=== PATIENT | female | born 1990 | race Caucasian/White ===

== ENCOUNTER 2017-04-02 04:04 | Emergency (ER) | payer OTHER ==
[2017-04-02] MEDS ORDERED: NS 0.9% 1000 ML* 1,000 ML IV ONE (04:22)
[2017-04-02] MEDS ORDERED: diPHENhydraMINE IV* 50 MG/ML 1 ml VIAL (BENADRYL) IV ONE (04:22)
[2017-04-02] MEDS ORDERED: Famotidine IV* 10 MG/ML 2 ML (20 mg) IV SLOW PU ONE (04:23)
[2017-04-02] MEDS ORDERED: methylPREDNISolone 125 MG* 2 ML VIAL IV ONE (04:23)
[2017-04-02] MEDS ORDERED: Albuterol/Ipratropium NEB.SOL* Albuterol 2.5 MG/Ipratropium 0.5 MG 3 ML INH ONE (04:34)
[2017-04-02 05:46] VITALS: BP 111/69
--- NOTE | 2017-04-02 06:09 | ED ---
Imani Spicer Alok, scribed for Gian Lowe MD on 04/02/17 at 0430 . Shortness of Breath - HPI Summary HPI Summary: 27F presents to the ED with SOB since 2 nights ago and a rash on her arms and legs since 2100 this evening. Pt states she has been using her albuterol inhaler with mild relief though much less than the relief she usually gets. Pt has been using her inhaler ever 3-4 hours the past two days as opposed to once a day as she does regularly. Pt denies eating/drinking before onset of rash and states it is pruritus. Pt also notes chest tightness, wheezing, and non- productive cough. Pt notes dizziness and lightheadedness today and states that her SOB has improved somewhat today versus yesterday. PMHx includes h/o asthma and celiac's disease. Pt states that her asthma is usually aggravated by seasonal allergies. Pt also takes Zyrtec on top of her inhaler. - History of Current Complaint Chief Complaint: EDAllergicReaction Time Seen by Provider: 04/02/17 04:16 Hx Obtained From: Patient Onset/Duration: Lasting Days, Still Present Timing: Constant Current Severity: Moderate Dyspnea At: Rest Associated Signs & Symptoms: Cough (Nonproductive), Wheezing, Chest Pain Unrelated to Cough, Dizzy - Allergy/Home Medications Allergies/Adverse Reactions: Allergies Allergy/AdvReac Type Severity Reaction Status Date / Time No Known Allergies Allergy Verified 04/02/17 04:11 PMH/Surg Hx/FS Hx/Imm Hx Respiratory History: Reports: Hx Asthma Infectious Disease History: No Infectious Disease History: Denies: Traveled Outside the [place] in Last 30 Days - Family History Known Family History: Negative: Hypertension - Social History Occupation: Student Lives: With Family Review of Systems Negative: Fever Positive: Chest Pain - "tightness" Positive: Shortness Of Breath, Cough Positive: Rash Neurological: Other - Dizziness, lightheadedness All Other Systems Reviewed And Are Negative: Yes Physical Exam - Summary Physical Exam Summary: The patient is well-nourished in no acute distress and in no acute pain. The skin is warm and dry and skin color reflects adequate perfusion. Generalized hives throughout arms and trunk with no cyanosis. HEENT: The head is normocephalic and atraumatic. The pupils are equal and reactive. The conjunctivae are clear and without drainage. Nares are patent and without drainage. Mouth reveals moist mucous membranes and the throat is without erythema and exudate. The external ears are intact. The ear canals are patent and without drainage. The tympanic membranes are intact. Neck is supple with full range of motion and non-tender. There are no carotid bruits. There is no neck vein distension. Respiratory: Chest is non-tender. Diffuse wheezing throughout both lung berry. Cardiovascular: Heart is regular rate and rhythm with no tachycardia. There is no murmur or rub auscultated. There is no peripheral edema and pulses are symmetrical and equal. Abdomen: The abdomen is soft and non-tender. There are normal bowel sounds heard in all four quadrants and there is no organomegaly palpated. Musculoskeletal: There is no back pain noted. Extremities are non-tender with full range of motion. There is good capillary refill. There is no peripheral edema or calf tenderness elicited. Neurological: Patient is alert and oriented to person, place and time. The patient has symmetrical motor strength in all four extremities. Cranial nerves are grossly intact. Deep tendon reflexes are symmetrical and equal in all four extremities. Psychiatric: The patient has an appropriate affect and does not exhibit any anxiety or depression. Triage Information Reviewed: Yes Vital Signs On Initial Exam: Initial Vitals Temp Pulse Resp BP Pulse Ox 98.2 F 95 20 144/95 100 04/02/17 04:09 04/02/17 04:09 04/02/17 04:09 04/02/17 04:09 04/02/17 04:09 Vital Signs Reviewed: Yes Diagnostics - Vital Signs Vital Signs Temp Pulse Resp BP Pulse Ox 04/02/17 04:09 98.2 F 95 20 144/95 100 - Laboratory Lab Statement: Any lab studies that have been ordered have been reviewed, and results considered in the medical decision making process. Re-Evaluation - Re-Evaluation First Eval Re-Evaluation Time: 05:20 Change: Improved Comment: Pt SOB improved from breathing treatment. Course/Dx - Course Course Of Treatment: 27 y/o female presents with SOB and generalized hives on her arms and trunk. Pt was given a breathing treatment and condition improved. Will discharge home with rx for pepcid and prednisone. - Diagnoses Differential Diagnosis/HQI/PQRI: Positive: Asthma, Other - allergic reaction Provider Diagnoses: Asthma exacerbation, Allergic reaction Discharge - Discharge Plan Condition: Stable Disposition: HOME Prescriptions: Famotidine TAB 40 MG(NF) [Pepcid TAB 40 MG(NF)] 40 mg PO DAILY #30 tab predniSONE TAB* [Deltasone TAB*] 60 mg PO DAILY #15 tab Patient Education Materials: Asthma (ED), General Allergic Reaction (ED) Referrals: Miko Reid MD [Primary Care Provider] - Additional Instructions: Please follow up with your primary care provider. The documentation as recorded by the Imani molina Alok accurately reflects the service I personally performed and the decisions made by , Gian Lowe MD.
== END 2017-04-02 06:00 | disposition home or self-care (01) ==
LOC: ED 04:04
DX: J45.901 Unspecified asthma with (acute) exacerbation (principal); T78.40XA Allergy, unspecified, initial encounter; X58.XXXA Exposure to other specified factors, initial encounter
CPT/HCPCS: 94640; 94760; 96360; 96374; 96375; 99282; A9270-GY; J1200; J2930

== ENCOUNTER 2019-01-16 13:47 | Emergency (ER) | payer OTHER ==
--- NOTE | 2019-01-16 14:51 | ED ---
GI/ HPI - HPI Summary HPI Summary: The patient is a 28 year old F presenting to [facility] accompanied by mother with a chief complaint of bilateral flank pain and pressure since last week. The patient originally thought the pain was caused by gluten poisoning due to Celiac disease. However the Sx worsened two days ago, 01/14/19, after the gluten poisoning had ended. The patient rates the pain 6/10 in severity. Symptoms aggravated by nothing. Symptoms alleviated by nothing. Patient reports nausea, dizziness, chills, blood in the stool, abdominal pain, and muscle stiffness. The patient also reports a LNMP 2 weeks ago. Patient denies fever, vomiting, diarrhea, or hematuria. Patient also denies any vaginal symptoms. Patient has no Hx of UTIs, Chron's disease, Ulcerative Colitis, colonoscopy, or endoscopy. - History of Current Complaint Chief Complaint: EDFlankPain Time Seen by Provider: 01/16/19 14:28 Stated Complaint: BI LATERAL KIDNEY PRESSURE PER PT Hx Obtained From: Patient, Family/Announcer - mother Onset/Duration: Started Weeks Ago - 1, Still Present, Worse Since - 2 days ago Timing: Constant, Lasting Weeks - 1 Severity: Moderate Current Severity: Moderate Pain Intensity: 6 Location of Pain: Flank - bilateral Pain Characteristics: Pressure Associated Signs and Symptoms: Positive: Dizziness, Nausea, Blood w/Stool, Flank Pain, Abdominal Pain, Other: - Positive: chills, LNMP 2 weeks ago. Negative: Vomiting, Diarrhea, Fever, Hematuria Aggravating Factor(s): Nothing Alleviating Factor(s): Nothing - Allergy/Home Medications Allergies/Adverse Reactions: Allergies Allergy/AdvReac Type Severity Reaction Status Date / Time gluten Allergy Stomach Verified 01/16/19 13:53 Cramps Home Medications: Home Medications Albuterol HFA INHALER* [Ventolin HFA Inhaler*] 2 puff INH Q4H PRN 01/16/19 [ History Confirmed 01/16/19] Loratadine 10 mg PO DAILY 01/16/19 [History Confirmed 01/16/19] PMH/Surg Hx/FS Hx/Imm Hx Respiratory History: Reports: Hx Asthma Denies: Hx Chronic Obstructive Pulmonary Disease (COPD) GI History: Denies: Hx Crohn's Disease, Other GI Disorders - Ulceritive Colitis - Surgical History Surgery Procedure, Year, and Place: NONE Infectious Disease History: No Infectious Disease History: Denies: Traveled Outside the [place] in Last 30 Days - Family History Known Family History: Positive: Other - Negitive: Chron's Disease, Ulceritive Colitis Negative: Hypertension - Social History Alcohol Use: Occasionally Hx Substance Use: No Substance Use Type: Reports: None Hx Tobacco Use: No Smoking Status (MU): Never Smoked Tobacco Review of Systems Positive: Chills. Negative: Fever Positive: Abdominal Pain, Nausea. Negative: Vomiting, Diarrhea Positive: flank pain, other - LNMP 2 weeks ago. Negative: hematuria Positive: Other - Muscle stiffness Neurological: Other - Dizziness All Other Systems Reviewed And Are Negative: Yes Physical Exam - Summary Physical Exam Summary: Appearance: well appearing, no pain distress Skin: warm, dry, reflects adequate perfusion Head/face: normal Eyes: EOMI, ANGEL ENT: mucous membranes moist Neck: supple, non-tender Respiratory: CTA, breath sounds present Cardiovascular: RRR, pulses symmetrical Abdomen: non-tender, soft, no CVA tenderness Bowel Sounds: present Musculoskeletal: normal, strength/ROM intact Neuro: normal, sensory motor intact, A&Ox3 Triage Information Reviewed: Yes Vital Signs On Initial Exam: Initial Vitals Temp Pulse Resp BP Pulse Ox 98.6 F 81 16 135/79 97 01/16/19 13:48 01/16/19 13:48 01/16/19 13:48 01/16/19 13:48 01/16/19 13:48 Vital Signs Reviewed: Yes Diagnostics - Vital Signs Vital Signs Temp Pulse Resp BP Pulse Ox 01/16/19 13:48 98.6 F 81 16 135/79 97 - Laboratory Result Diagrams: 01/16/19 14:37 01/16/19 14:37 Lab Statement: Any lab studies that have been ordered have been reviewed, and results considered in the medical decision making process. GIGU Course/Dx - Course Course Of Treatment: Nurse's notes reviewed. Patient with recurring abdominal issues which she attributes to celiac disease over many years. She states that sometimes she gets symptoms up to 6 months in duration after eating a small amount of gluten. She did pass a small amount of blood in her stool earlier in the week. She has no abdominal pain now and no back discomfort. Laboratories show slight elevation in WBC and no urinary tract infection. I offered CT scan of the abdomen we have agreed to defer this given her lack of discomfort. It is possible that she has some colitis and will treat with antibiotics. I suggested that she needs outpatient GI evaluation to include colonoscopy to rule out IBD. - Diagnoses Differential Diagnoses - Female: Other - Ulcerative colitis/Crohn's disease, celiac disease, lumbar strain, pyelonephritis, UTI, constipation Provider Diagnoses: Leukocytosis, Celiac disease, Low back pain, Inflammatory bowel disease Discharge - Sign-Out/Discharge Documenting (check all that apply): Patient Departure - discharge Patient Received Moderate/Deep Sedation with Procedure: No - Discharge Plan Condition: Stable Disposition: HOME Prescriptions: Amoxicillin/Clavulanate TAB* [Augmentin TAB 875*] 875 mg PO BID #14 tab Hyoscyamine Sulfate 0.125 mg PO TID PRN #30 tab PRN Reason: cramping Patient Education Materials: Celiac Disease (ED), Crohn Disease (ED) Referrals: Miko Reid MD [Primary Care Provider] - Haylie Dumont MD [Medical Doctor] - Additional Instructions: Avoid ibuprofen and likely medications for discomfort. Use Tylenol as needed. He will need to have a colonoscopy and evaluation by GI doctor on return home. Call them in the morning to schedule follow-up. Follow up with her primary care physician as soon as possible. Return with fever, increased abdominal pain , worse, new symptoms or other concerns. - Billing Disposition and Condition Condition: STABLE Disposition: Home - Attestation Statements Document Initiated by Zev: Yes Documenting Scribe: Thomas Kay Provider For Whom Zev is Documenting (Include Credential): Joe Weems MD Scribe Attestation: I, Thomas Kay, scribed for Joe Weems MD on 01/16/19 at 1726. Scribe Documentation Reviewed: Yes Provider Attestation: The documentation as recorded by the Thomas molina accurately reflects the service I personally performed and the decisions made by me, Joe Weems MD Status of Scribe Document: Viewed
[2019-01-16 14:52] LABS: ABS Basophils 0.1 10^3/ul (0-0.2); ABS Eosinophils 0.8 10^3/ul (0-0.6); ABS Lymphocytes 3.4 10^3/ul (1.0-4.8); ABS Monocytes 0.7 10^3/ul (0-0.8); ABS Neutrophils 6.2 10^3/ul (1.5-7.7); Hematocrit 38 % (35-47); Hemoglobin 12.5 g/dL (12.0-16.0); Lymphocyte % 30.1 %; Mean Corpuscular HGB Conc 33 g/dL (31-36); Mean Corpuscular Hemoglobin 30 pg (27-31); Mean Corpuscular Volume 91 fL (80-97); Mean Platelet Volume 6.9 fL (7.4-10.4); Nucleated Red Blood Cells % 0.1; Platelet Count 430 10^3/uL (150-450); Red Blood Count 4.16 10^6 /uL (3.70-4.87); Red Cell Distribution Width 14 % (10.5-15); White Blood Count 11.2 10^3/uL (3.5-10.8)
[2019-01-16 15:08] LABS: ALT 8 U/L (7-52); AST 13 U/L (13-39); Albumin 4.7 g/dL (3.2-5.2); Albumin/Globulin Ratio 1.7 (1-3); Alkaline Phosphatase 54 U/L (34-104); Anion Gap 6 mmol/L (2-11); Blood Urea Nitrogen 12 mg/dL (6-24); C Reactive Protein 5.84 mg/L (<8.01); CO2 Carbon Dioxide 27 mmol/L (22-32); Chloride 104 mmol/L (101-111); Globulin 2.8 g/dL (2-4); Glucose 74 mg/dL (70-100); Potassium 4.1 mmol/L (3.5-5.0); Sodium 137 mmol/L (135-145); Total Protein 7.5 g/dL (6.4-8.9)
[2019-01-16 15:15] LABS: HCG Pregnancy < 0.60 mIU/mL
[2019-01-16 15:16] LABS: Urine Appearance Clear; Urine Bilirubin Negative (Negative); Urine Blood Negative (Negative); Urine Color Straw; Urine Glucose Negative (Negative); Urine Ketones Negative (Negative); Urine Nitrite Negative (Negative); Urine Protein Negative (Negative); Urine Specific Gravity 1.005 (1.010-1.030); Urine Urobilinogen Negative (Negative)
[2019-01-16 15:50] VITALS: BP 117/72
[2019-01-16 16:07] LABS: BUN/Creatinine Ratio 16.2 (8-20); EGFR African American 112.3 (>60); EGFR Non-African American 92.8 (>60)
== END 2019-01-16 15:49 | disposition home or self-care (01) ==
LOC: ED 13:47
DX: D72.829 Elevated white blood cell count, unspecified (principal); K58.9 Irritable bowel syndrome, unspecified; K90.0 Celiac disease; M54.5 Low back pain; R10.84 Generalized abdominal pain; R42 Dizziness and giddiness; R11.0 Nausea; Z87.19 Personal history of other diseases of the digestive system
CPT/HCPCS: 36415; 80053; 81003; 83605; 83690; 84702; 85025; 86140; 99282